=== PATIENT | female | born 1955 | race Caucasian/White ===

== ENCOUNTER 2021-08-06 19:36 | Emergency (ER) | payer OTHER, SELFPAY ==
[~2021-08-06] VITALS: Ht 170.2 cm; Wt 74.2 kg
[2021-08-06 20:42] LABS: RSV AMPLIFICATION NEGATIVE (NEGATIVE)
[2021-08-06] MEDS ORDERED: ALBUTEROL 90 MCG/ACT 8GM HFA INHALER INH ONE (23:15)
[2021-08-06] MEDS ORDERED: VENTAER INH (23:56)
[2021-08-07 00:20] VITALS: BP 153/94
== END 2021-08-07 00:34 | disposition home or self-care (01) ==
LOC: M ED 19:36
DX: R50.9 Fever, unspecified (principal); R06.02 Shortness of breath; U07.1 COVID-19; I10 Essential (primary) hypertension; Z88.5 Allergy status to narcotic agent

== ENCOUNTER 2021-08-08 12:00 | Outpatient (CLI) | payer OTHER, SELFPAY ==
--- NOTE | 2021-08-07 00:17 | HPEPDOC ---
[facility] Medical History & Physical Date of Admission Aug 07, 2021 Date of Service: Aug 07, 2021 Attending Physician: Kelsi Andrea History and Physical CHIEF COMPLAINT: [65 y/o female c/o uri sx x5 days] HISTORY OF PRESENT ILLNESS: [This is a 65 y/o female with a pmh of htn who prese nts to our ED for evaluation of uri sx that have persisted for approx 5 days. Patient states that symptoms began mildly and have progressed into nonproductive cough and mild sob on exertion. Patient complains of loss of taste/smell, fatigue, malaise, subjective fevers, congestion. Patient, at the time of my exam, denies any hemoptysis, chest pain, sob at rest, abd pain, n/v/d/c, pedal edema, calf pain.] PAST MEDICAL HISTORY: 1. [See HPI PAST SURGICAL HISTORY: 1. [Appendectomy]. SOCIAL HISTORY: Tobacco use:[Denies] ETOH: [Denies] Illicit drug use: [Denies] FAMILY HISTORY: Reviewed - none pertinent ALLERGIES: Please see below. REVIEW OF SYSTEMS: CONSTITUTIONAL: [See HPI]. HEENT: [See HPI]. CARDIOVASCULAR: [Denies chest pain, palpitations]. RESPIRATORY: [Denies sob at rest, wheezing]. GASTROINTESTINAL: [Denies abd pain, n/v/d/c]. GENITOURINARY: [Denies dysuria]. SKIN: [Denies rash]. MUSCULOSKELETAL: [Denies acute joint/back pain]. NEUROLOGICAL: [Denies syncope, paresthesias]. ENDOCRINE: [Denies hx of DM]. HEMATOLOGIC/LYMPHATIC: [Denies hx of vte]. HOME MEDICATIONS: Please see below. PHYSICAL EXAMINATION: VITAL SIGNS: Please see below. GENERAL APPEARANCE: [This is a wd/wn 65 y/o female resting on ED stretcher. She is alert and oriented to all questioning. She does not appear to be in any acute distress]. HEENT: [No mass or lesion. EOMI. No scleral icterus. Nares patent. Oral mucosa moist]. CARDIOVASCULAR: [Regular rate, rhythm]. LUNGS: [Good air flow, no wheezing]. ABDOMEN: [Soft, nondistended]. MUSCULOSKELETAL: [No joint deformity]. EXTREMITIES: [No pedal edema, no overlying skin changes. Pulses intact]. NEUROLOGICAL: [Speech clear. A+Ox3. No focal deficits]. PSYCHIATRIC: [Mood and affect appear appropriate]. LABORATORY DATA: See below. IMAGING: [CXR: FINDINGS: Lungs: Faint nonspecific linear stranding in the left lung. No consolidation. Pleural spaces: Unremarkable. No pleural effusions. No pneumothorax. Heart/Mediastinum: Unremarkable. No cardiomegaly. Bones/joints: Unremarkable. IMPRESSION: Faint nonspecific linear stranding in the left lung. No consolidation. No pleural effusions. Possible mild nonspecific left lung pneumonitis, eg.] MICROBIOLOGY: Please see below. ASSESSMENT: [This is a 65 y/o female with a pmh of htn who presents to our ED for evaluation of uri sx that have persisted for approx 5 days. Patient tested + for COVID19 in our ED]. . PLAN: 1. [COVID19 - Patient does not meet criteria at this time for hospital admission - no hypoxia, concerning cxr findings - Due to patients age and comorbid htn, patient is a candidate for monoclonal antibody infusion - Risks and benefits of infusion were discussed with the patient and consent form was filled out - Will order medications to be on standby pending possible anaphylaxis - Patient may have regular diet while in the hospital for infusion - Pending patient tolerates the infusion well and has no issues through observation period, she may go home after it is complete]. Home Medications Scheduled PRN Albuterol Sulfate (Ventolin Hfa) 18 Gm Hfa.aer.ad, 2 PUFF INH Q4-6HP PRN for wheezing Allergies Coded Allergies: morphine (Verified Allergy, Unknown, 08/06/21) Attending Note Patient was not physically seen by me. Mark Varela, Physician Soaker discussed the patient with me touching upon history, physical examination findings, laboratory findings, imaging reports, and assessment. I agree with the assessment and plan documented. A-FIB/CHADSVASC A-FIB History Current/History of A-Fib/PAF?: No Current PO Anticoag Therapy: No MARK VARELA Aug 07, 2021 00:17 Kelsi Andrea Aug 07, 2021 04:45
[~2021-08-08] VITALS: Ht 154.9 cm; Wt 76.0 kg
[~2021-08-08 12:00] MED LIST: ACETAMINOPHEN TAB 650MG DOSE (2X325MG) PO PRN; ALBUTEROL 90 MCG/ACT 8GM HFA INHALER INH PRN; ALBUTEROL SULFATE 2.5 MG/0.5 ML INH NEB SOLN INH PRN; BAMLANIVIMAB 700 MG, ETESEVIMAB 1,400 MG in NS 250 ML IV ONE; CASIRIVIMAB/IMDEVIMAB 1,200 MG in NS 250 ML IV ONE; EPINEPHrine INJ 1 MG/ML 1ML AMP IM PRN; NS 1,000 ML IV SCH; VENTAER INH; diphenhydrAMINE 50MG/ML VIAL (J1200) IV PRN; methylPREDNISolone 125MG 2ML VIAL IV PRN
[2021-08-08 13:40] VITALS: BP 133/77
[2021-08-08 14:10] VITALS: BP 131/69
[2021-08-08 14:40] VITALS: BP 142/75
[2021-08-08 15:40] VITALS: BP 140/76
== END 2021-08-08 16:02 | disposition home or self-care (01) ==
LOC: M OPCLI4PR 12:00
PROVIDERS: ATTEND Emergency Medicine
DX: U07.1 COVID-19 (principal)